=== PATIENT | male | born 1945 | race Caucasian/White ===

== ENCOUNTER → 2023-04-10 | Outpatient (REF) | payer OTHER, SELFPAY ==
[2023-04-10 13:38] LABS: Anion Gap 9 (5-15); BUN 104 mg/dL (7-18); BUN/Creat Ratio 41.3 RATIO (10-20); Calcium,Total 11.1 mg/dL (8.5-10.1); Chloride 98 mmol/L (98-107); Creatinine, Serum 2.52 mg/dL (0.70-1.30); EST Glomerular Filtration Rate 26 mL/min (>60); Est Glom Filt Rate - Afr Amer 32 mL/min (>60); Glucose 100 mg/dL (74-106); Potassium 4.1 mmol/L (3.5-5.1); Sodium Level 138 mmol/L (136-145)
== END ==
LOC: OLS.HOSPIC 11:38
PROVIDERS: Family Medicine
DX: E78.5 Hyperlipidemia, unspecified (principal); I10 Essential (primary) hypertension
CPT/HCPCS: 80048